=== PATIENT | female | born 1995 | race African-American/Black ===

== ENCOUNTER 2018-04-30 11:24 | Emergency (ER) | payer MEDICAID ==
[~2018-04-30] VITALS: Ht 152.4 cm; Wt 60.0 kg
[2018-04-30 11:28] VITALS: BP 114/80
[2018-04-30] MEDS ORDERED: TETANUS, DIPHTHERIA, PERTUSSIS VAC/PF 0.5ML (>7YR OLD) IM ONE (15:30)
[2018-04-30] MEDS ORDERED: BACITRACIN ZINC OINT UDPKT TOP ONE (15:30)
[2018-04-30] MEDS ORDERED: LIDOCAINE HCL/PF 1% 10 MG/ML 5ML VIAL IJ ONE (15:30)
== END 2018-04-30 17:07 | disposition home or self-care (01) ==
LOC: ER 16:04
DX: S01.511A Laceration without foreign body of lip, initial encounter (principal); J45.909 Unspecified asthma, uncomplicated; V89.2XXA Person injured in unspecified motor-vehicle accident, traffic, initial encounter; Y93.89 Activity, other specified; Y92.89 Other specified places as the place of occurrence of the external cause; Y99.8 Other external cause status
CPT/HCPCS: 12011; 90715; 99283; J3490